=== PATIENT | female | born 1990 | race Caucasian/White ===

== ENCOUNTER 2018-08-12 10:45 | Inpatient (IN) | payer MEDICAID ==
[~2018-08-12] VITALS: Ht 157.5 cm; Wt 73.3 kg
[2018-08-12] MEDS ORDERED: PNV11TAB PO (11:23)
[2018-08-12 11:24] VITALS: BP 108/63; PULSE 87; RESP 19; Ht 157.5 cm; Wt 73.3 kg
[2018-08-12] MEDS ORDERED: LACTATED RINGER'S 1,000 ML IV ONE (11:30)
[2018-08-12] MEDS: LACTATED RINGER'S 1,000 ML IV SCH ×2 (13:21→17:46)
[2018-08-12] MEDS ORDERED: CEFTRIAXONE 1 GM/50 ML (PMX) 50 ML IVPB ONE (14:00)
--- NOTE | 2018-08-12 14:04 | PN ---
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 which has brought on her contractions Patient reports positive movement, denies vaginal bleeding or leaking fluid Patient also reports recently finishing a course of antibiotics for UTI Past OB history significant for x1 at full-term The rest of the pregnancies were terminations /Para 5 para 1 Diabetes: none Hypertention: none Objective Vital Signs Date Temp Pulse Resp B/P (MAP) Pulse Ox O2 O2 Flow FiO2 Time Delivery Rate 08/12/18 99.1 87 19 108/63 Room Air 11:24 (78) Heart Rate: 140's Heart Rate Comments heart rate tracing category 1 Contractions: < 5 Minutes Apart Results/Medications Results 24 hrs Laboratory Tests Test 08/12/18 10:40 08/12/18 11:42 Urine Color YELLOW Urine Clarity SLIGHTLY CLOUDY A Urine pH 7.0 Urine Specific [place] 1.017 Urine Ketones NEGATIVE Urine Nitrite NEGATIVE Urine Bilirubin NEGATIVE Urine Urobilinogen NEGATIVE Urine Leukocyte Esterase 3+ H Urine Microscopic RBC 3 Urine Microscopic WBC 3 Urine Squamous Epithelial Cells FEW Urine Bacteria FEW A Urine Mucus FEW A Urine Hemoglobin NEGATIVE Urine Glucose NEGATIVE Urine Total Protein NEGATIVE Fibronectin NEGATIVE Hematology - 72 Hrs Test 08/12/18 11:44 Hematocrit 32.9 % (37.0-47.0) L Hemoglobin 11.0 g/dl (12.0-16.0) L Mean Corpuscular Hemoglobin 30.5 pg (29.0-33.0) Mean Corpuscular Hemoglobin Concent 33.4 g/dl (32.0-37.0) Mean Corpuscular Volume 91.1 fl (82.0-101.0) Mean Platelet Volume 10.0 fl (7.4-10.4) Platelet Count 225 10^3/UL (140-415) Red Blood Count 3.61 10^6/ul (4.20-5.40) L Red Cell Distribution Width 12.8 % (11.5-14.5) White Blood Count 8.6 10^3/ul (4.8-10.8) Chemistry Test 08/12/18 11:44 Sodium Level 136 mmol/L (135-144) Potassium Level 3.9 mmol/L (3.5-5.1) Chloride Level 106 mmol/L (97-110) Carbon Dioxide Level 25 mmol/L (21-31) Anion Gap 5 (5-13) Blood Urea Nitrogen 8 mg/dl (7-20) Creatinine 0.45 mg/dl (0.44-1.00) Est Glomerular Filtrat Rate mL/min > 60 mL/min (>60) Glucose Level 69 mg/dl (70-220) L Calcium Level 9.3 mg/dl (8.4-10.2) Total Bilirubin 0.5 mg/dl (0.2-1.3) Direct Bilirubin 0.00 mg/dl (0.00-0.20) Indirect Bilirubin 0.5 mg/dl (0-1.1) Aspartate Amino Transf (AST/SGOT) 20 IU/L (15-46) Alanine Aminotransferase (ALT/SGPT) 15 IU/L (13-69) Alkaline Phosphatase 67 IU/L (42-121) Total Protein 6.5 g/dl (6.1-8.1) Albumin 3.3 g/dl (3.3-4.9) Globulin 3.20 g/dl (1.3-3.2) Albumin/Globulin Ratio 1.03 Medications Current Medications Lactated Ringer's 1,000 ml @ 125 mls/hr Q8H IV Last administered on 08/12/18at 13:21; Admin Dose 125 MLS/HR; Start 08/12/18 at 11:30 Imaging Results PROCEDURE: OB ultrasound for biophysical profile CLINICAL INDICATION: labor. TECHNIQUE: Multiple sonographic images of the pelvis were obtained. Transabdominal view of the gravid uterus are available for review. The images were reviewed on a PACS workstation. COMPARISON: OB ultrasound from the same date. FINDINGS: breathing movement = 2/2 tone = 2/2 motion = 2/2 Quantitative amniotic fluid volume = 2/2 JA = 15.4 cm Single live intrauterine with cardiac activity at 144 beats per minute. There is a anterior placenta without previa or abruption. Cervix is closed and measures 3.4 cm in length. IMPRESSION: 1. Single living intrauterine gestation in cephalic position. 2. Biophysical profile = 8/8. 3. JA = 15.4 cm. RPTAT: [facility] Physician Travis Date Time Electronically viewed and signed by Rios Bassett Physician on 08/12/2018 12:36 JH/ CC: LARA NY MD [id number] PROCEDURE: US OB. CLINICAL INDICATION: Size and dates , labor TECHNIQUE: Multiple sonographic images of the pelvis and gravid uterus were obtained. The images were reviewed on a PACS workstation. COMPARISON: No prior studies are available for comparison. FINDINGS: Gestation: Single live intrauterine gestation. Cardiac activity: 163 beats per minute. Presentation: Vertex. Placenta: Location: Anterior. Appearance: No previa or abruption. Measurements: BPD = 9.0 cm, 36 weeks and 3 days HC = 32 cm, 36 weeks and 1 day AC = 29.6 cm, 33 weeks and 4 days FL = 6.2 cm, 32 weeks and 2 days Gestational Age: AUA estimated gestational age: 34 weeks 4 days LMP estimated gestational age: 33 weeks 6 days AUA estimated date of delivery: 09/19/18 The EFW = 2267 g, 39.5%ile based on LMP age. RPTAT: AA IMPRESSION: Single live intrauterine gestation of 34 weeks 4 days by ultrasound criteria. .Ramy Durbin MD, Date Time Electronically viewed and signed by .Ramy Durbin MD, on 08/12/2018 12:21 .S/ CC: LARA [place] MD [id number] Disposition: Discharge Assessment/Plan IV fluid was given Urine analysis consistent with UTI Urine culture was sent IV Rocephin x1 dose was given was given Patient was given prescription for Macrobid 100 mg p.o. twice daily for 1 week Patient instructed to increase p.o. fluid intake kick count instructions were given Labor precautions were given Patient instructed to return if uterine contractions persist or she has any vaginal bleeding or leaking fluid Patient instructed to follow-up with [facility] in 1 to 2 days LARA [place] MD Aug 12, 2018 14:02
[2018-08-12] MEDS: SOD CHLORIDE 0.9% 1,000 ML IV SCH ×2 (14:55→22:30)
--- NOTE | 2018-08-12 16:31 | HP ---
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 OB Admission Exam Vital Signs Vital Signs Vital Signs Date Temp Pulse Resp B/P (MAP) Pulse Ox O2 O2 Flow FiO2 Time Delivery Rate 08/12/18 99.1 87 19 108/63 Room Air 11:24 (78) Physical Exam HEENT: WNL Heart: Rhythm Normal Lungs: Clear, Equal Abdomen: WNL Extremities: Normal Reflexes: Normal Cervical Dilatation: None Membranes: Intact Heart Rate: 140's Accelerations: Accelerations Present Decelerations: No Decelerations Varibility: Moderate Contractions on Admission: < 5 Minutes Apart Intensity: Moderate Last 72 hours Lab Results CBC & BMP 08/12/18 11:44 Liver Function Test 08/12/18 11:44 Alanine Aminotransferase (ALT/SGPT) 15 Albumin 3.3 Alkaline Phosphatase 67 Aspartate Amino Transf (AST/SGOT) 20 Direct Bilirubin 0.00 Total Protein 6.5 Urine Results - 72 Hrs Test 08/12/18 10:40 Urine Color YELLOW (YELLOW) Urine Clarity SLIGHTLY CLOUDY (CLEAR) Urine pH 7.0 (5.0-9.0) Urine Specific [place] 1.017 (1.003-1.030) Urine Ketones NEGATIVE mg/dL (NEGATIVE) Urine Nitrite NEGATIVE mg/dL (NEGATIVE) Urine Bilirubin NEGATIVE mg/dL (NEGATIVE) Urine Urobilinogen NEGATIVE mg/dL (NEGATIVE) Urine Leukocyte Esterase 3+ [place]/ul (NEGATIVE) H Urine Microscopic RBC 3 /HPF (0-5) Urine Microscopic WBC 3 /HPF (0-5) Urine Squamous Epithelial Cells FEW /HPF (FEW) Urine Bacteria FEW /HPF (NONE SEEN) A Urine Mucus FEW /HPF (NONE SEEN) A Urine Hemoglobin NEGATIVE mg/dL (NEGATIVE) Urine Glucose NEGATIVE mg/dL (NEGATIVE) Urine Total Protein NEGATIVE mg/dl (NEGATIVE) PROCEDURE: OB ultrasound for biophysical profile CLINICAL INDICATION: labor. TECHNIQUE: Multiple sonographic images of the pelvis were obtained. Transabdominal view of the gravid uterus are available for review. The images were reviewed on a PACS workstation. COMPARISON: OB ultrasound from the same date. FINDINGS: breathing movement = 2/2 tone = 2/2 motion = 2/2 Quantitative amniotic fluid volume = 2/2 JA = 15.4 cm Single live intrauterine with cardiac activity at 144 beats per minute. There is a anterior placenta without previa or abruption. Cervix is closed and measures 3.4 cm in length. IMPRESSION: 1. Single living intrauterine gestation in cephalic position. 2. Biophysical profile = 10/10. 3. JA = 15.4 cm. RPTAT: [facility] Physician Travis Date Time Electronically viewed and signed by Physician Travis on 08/12/2018 12:36 JH/ CC: LARA [place] MD [id number] PROCEDURE: US OB. CLINICAL INDICATION: Size and dates , labor TECHNIQUE: Multiple sonographic images of the pelvis and gravid uterus were obtained. The images were reviewed on a PACS workstation. COMPARISON: No prior studies are available for comparison. FINDINGS: Gestation: Single live intrauterine gestation. Cardiac activity: 163 beats per minute. Presentation: Vertex. Placenta: Location: Anterior. Appearance: No previa or abruption. Measurements: BPD = 9.0 cm, 36 weeks and 3 days HC = 32 cm, 36 weeks and 1 day AC = 29.6 cm, 33 weeks and 4 days FL = 6.2 cm, 32 weeks and 2 days Gestational Age: AUA estimated gestational age: 34 weeks 4 days LMP estimated gestational age: 33 weeks 6 days AUA estimated date of delivery: 09/19/18 The EFW = 2267 g, 39.5%ile based on LMP age. RPTAT: AA IMPRESSION: Single live intrauterine gestation of 34 weeks 4 days by ultrasound criteria. .Ramy Durbin MD, MD Date Time Electronically viewed and signed by .Ramy Durbin MD, MD on 08/12/2018 12:21 .S/ CC: LARA [place] MD [id number] OB Assessment/Plan Reason for admission: labor (and urinary tract infection) Other plan: 33 weeks and 6 days of gestation with contractions and urinary tract infection Admit to antepartum Continue with IV antibiotics Magnesium sulfate for prevention of labor Betamethasone for lung maturity Neonatology consultation Copies To: CC: BIANKA MARTINEZ MD ; LARA [place] MD Aug 12, 2018 16:31
--- NOTE | 2018-08-12 16:48 | TRIAGE ---
OB Triage Datetime Report Generated by CPN: 08/12/2018 16:48 Datetime: 08/12/2018 16:45 Labor Evaluation Frequency: 2-4 Monitor Mode: External Duration (sec)2399: 50-80 Quality: Mild Pattern: Normal: <= 5 Contractions in 10 Minutes Resting Tone [place]: Relaxed Heart Rate FHR Baseline Rate: 145 Monitor Mode: External US Variability: Moderate 6-25 bpm Accelerations: 15X15 Decelerations: None Category: Category I Datetime: 08/12/2018 13:28 Labor Evaluation Frequency: occas Monitor Mode: External Duration (sec)2399: 50-70 Quality: Mild Pattern: Normal: <= 5 Contractions in 10 Minutes Resting Tone [place]: Relaxed Heart Rate FHR Baseline Rate: 135 Monitor Mode: External US FHR Baseline Changes: No Baseline Change Variability: Moderate 6-25 bpm Accelerations: 15X15 Decelerations: None Category: Category I Datetime: 08/12/2018 12:35 Labor Evaluation Frequency: irregular Monitor Mode: External Duration (sec)2399: 50-80 Quality: Mild Pattern: Normal: <= 5 Contractions in 10 Minutes Resting Tone [place]: Relaxed Heart Rate FHR Baseline Rate: 135 Monitor Mode: External US FHR Baseline Changes: No Baseline Change Variability: Moderate 6-25 bpm Accelerations: 15X15 Decelerations: None Category: Category I Datetime: 08/12/2018 11:45 Vaginal Exam Dilatation (cms): 0.5 Effacement (%): 0 Station: -4 Exam By: CKUNIYOSHI Vaginal Bleeding: None Presentation 'A': Unable to Assess Datetime: 08/12/2018 11:27 Labor Evaluation Frequency: 2 Monitor Mode: External Duration (sec)2399: 50-70 Quality: Mild Pattern: Normal: <= 5 Contractions in 10 Minutes Resting Tone [place]: Relaxed Heart Rate FHR Baseline Rate: 140 Monitor Mode: External US Variability: Moderate 6-25 bpm Accelerations: 15X15 Decelerations: None Category: Category I Datetime: 08/12/2018 11:09 Assessment Type: Triage Maternal Assessment Level of Consciousness: Fully Conscious DTR's/Clonus: DTRs 2+; No Clonus Headache: Denies Blurred Vision: No Respiratory Effort: Unlabored; Regular Rhythm; Equal Expansion Breath Sounds, Left: Clear and Equal Breath Sounds, Right: Clear and Equal Nausea/Vomiting: Denies RUQ Epigastric Pain: Denies Lower Extremities Edema: None Degree: None Upper Extremities Edema: None Degree: None Facial Edema: None Fall Risk Assessment History of Falling: (0) No Secondary Diagnosis: (0) No Ambulatory Aid: (0) Bedrest/Nurse Assist IV Therapy: (0) No Gait: (0) Normal/Bedrest/Immobile Mental Status: (0) Oriented to Own Ability Fall Score: 0 Fall Risk Score Definition: No Risk: No action required Datetime: 08/12/2018 11:08 Time of Arrival: 08/12/2018 10:35 EGA: 33.6 Arrived By: Ambulatory Arrived From: Home Chief Complaint: UC'S Movement: Present Contractions: Irregular Time Contractions Began: 08/11/2018 11:00 Rupture of Membranes: Denies Vaginal Bleeding: None Vaginal Discharge: Denies Recent Sexual Intercouse: Denies Abdominal Trauma: Not Applicable Patient Complaints: Contractions; Cramping Time Provider Notified: 08/12/2018 11:31 Initial Plan: JANELL
[2018-08-12] MEDS ORDERED: MAGNESIUM SULFATE 4 GM/100 ML 100 ML IV ONE (17:30)
[2018-08-12] MEDS: BETAMET NA PHOS/AC(6 MG/ML) 2 ML INJ SYG IM SCH (18:50)
[2018-08-12] MEDS: MAGNESIUM SULFATE 20 GM/500 ML 500 ML IV SCH (18:50)
[2018-08-13] MEDS: MAGNESIUM SULFATE 20 GM/500 ML 500 ML IV SCH ×2 (02:48→13:03)
[2018-08-13] MEDS: LACTATED RINGER'S 1,000 ML IV SCH ×2 (05:18→18:20)
[2018-08-13] MEDS: SOD CHLORIDE 0.9% 1,000 ML IV SCH ×2 (06:30→21:24)
[2018-08-13] MEDS ORDERED: FERROUS SULFATE (EC) 325 MG TAB PO SCH (09:00)
[2018-08-13] MEDS ORDERED: PRENATAL VITAMIN PO SCH (09:00)
[2018-08-13] MEDS ORDERED: CEFTRIAXONE 1 GM/50 ML (PMX) 50 ML IVPB SCH (15:00)
[2018-08-13] MEDS: BETAMET NA PHOS/AC(6 MG/ML) 2 ML INJ SYG IM SCH (18:20)
--- NOTE | 2018-08-13 22:16 | DS ---
Date/Time of Note Date/Time of Note DATE: 08/13/18 TIME: 22:13 Obstetrical Discharge Record Final Diagnosis Final Diagnosis: not delivered Other Final Diagnosis 27 YO SAB2 EAB1 with IUP at 34 weeks who reported to L&D with contractions and closed cervix. she received Magnesium Sulfate and Steroids. Cervix is closed at this time on repeat exam. she denies any contractions or bleeding or LOF per vagina. she reports good FM. NST category one. Complications Tocolytics: Magnesium Sulfate Rupture of Membranes: No Condition on Discharge Physical Assessment Voiding: Yes Bowel Movement: Yes Breast: Soft, non-tender, Filling Abdomen and Incision: soft, gravid. cervix is long and closed Calf Tenderness: No Patient Condition: Good BIANKA MARTINEZ MD Aug 13, 2018 22:16
[2018-08-13] MEDS ORDERED: NITR-58 PO (22:26)
== END 2018-08-13 22:35 | disposition home or self-care (01) | DRG 833 ==
LOC: OBT 10:45 → L-D 10:46 → OBT 16:25 → L-D 16:25
PROVIDERS: ADMIT Specialist; ATTEND Specialist
DX: O60.03 Preterm labor without delivery, third trimester (principal); Z3A.33 33 weeks gestation of pregnancy; Z87.440 Personal history of urinary (tract) infections
CPT/HCPCS: 36415; 76815; 76817; 76818; 80053; 81001; 82731; 83735; 85025; 87086; 96360; 96361; G0463; J0696; J0702; J3475; J7030; J7120

== ENCOUNTER 2018-09-23 06:00 | Inpatient (IN) | payer MEDICAID ==
[~2018-09-23] VITALS: Ht 157.5 cm; Wt 76.8 kg
[~2018-09-23 06:00] MED LIST: NITR-58 PO; PNV11TAB PO
[2018-09-23 06:20] VITALS: RESP 16
[2018-09-23] MEDS ORDERED: FOLI0.4T2 PO (06:20)
[2018-09-23] MEDS ORDERED: FERR134T PO (06:20)
[2018-09-23] MEDS ORDERED: LACTATED RINGER'S 1,000 ML IV PRN (06:56)
[2018-09-23] MEDS ORDERED: METHYLERGONOVINE 0.2 MG INJ IM PRN (07:00)
[2018-09-23] MEDS ORDERED: IBUPROFEN 600 MG TAB PO PRN (07:00)
[2018-09-23] MEDS ORDERED: LIDOCAINE 1% (MPF) 30 ML INJ INJ PRN (07:00)
[2018-09-23] MEDS ORDERED: CARBOPROST 250 MCG INJ IM PRN ×2 (07:00→22:00)
[2018-09-23] MEDS ORDERED: BUTORPHANOL 2 MG INJ IV PRN ×2 (07:00)
[2018-09-23] MEDS ORDERED: OXYTOCIN 30 UNITS/LR 500 ML IV SCH ×2 (07:00→19:30)
[2018-09-23] MEDS ORDERED: OXYTOCIN 30 UNITS/LR 500 ML IV PRN ×2 (07:00→22:00)
[2018-09-23] MEDS ORDERED: MISOPROSTOL 200 MCG TAB PR PRN ×2 (07:00→22:00)
--- NOTE | 2018-09-23 07:08 | TRIAGE ---
OB Triage Datetime Report Generated by CPN: 09/23/2018 07:07 Datetime: 09/23/2018 06:51 Membrane Status: Intact Datetime: 09/23/2018 06:45 Stage of : OB Triage Datetime: 09/23/2018 06:44 Labor Evaluation Frequency: 2-5 Monitor Mode: External Quality: Moderate Pattern: Normal: <= 5 Contractions in 10 Minutes Resting Tone Barton: Relaxed Heart Rate FHR Baseline Rate: 130 Monitor Mode: External US FHR Baseline Changes: No Baseline Change Variability: Moderate 6-25 bpm Accelerations: 15X15 Decelerations: None Category: Category I Vaginal Exam Dilatation (cms): 3.0 Effacement (%): 70 Station: -2 Exam By: Boaz Stevens Membrane Status: Intact Vaginal Bleeding: Scant Cervix, Consistency: Soft Cervix, Position: Posterior Presentation 'A': Cephalic Datetime: 09/23/2018 06:35 Time of Arrival: 09/23/2018 06:00 EGA: 39.6 Arrived By: Ambulatory Arrived From: Home Chief Complaint: c/o ucs and discharge Movement: Present Contractions: Regular Contractions: q7 Rupture of Membranes: Denies Vaginal Bleeding: Scant Vaginal Discharge: Present Recent Sexual Intercouse: Denies Abdominal Trauma: Not Applicable Patient Complaints: Contractions Time Provider Notified: 09/23/2018 06:45 Provider Notified: Dr Reilly Initial Plan: EFM,SVE Datetime: 09/23/2018 06:24 Stage of : OB Triage Maternal Assessment Level of Consciousness: Keenly Alert, Responsive Headache: Denies Blurred Vision: No Respiratory Effort: Unlabored Nausea/Vomiting: Denies RUQ Epigastric Pain: Denies Facial Edema: None Monitor Mode: External Resting Tone Barton: Relaxed Heart Rate FHR Baseline Rate: 135 Monitor Mode: External US Pain Assessment Pain Scale: 5 Pain Presence: Intermittent Pain Type: Contraction Pain Location: Abdomen Datetime: 08/13/2018 22:35 Stage of : Antepartum Datetime: 08/13/2018 22:02 Stage of : Antepartum Labor Evaluation Frequency: 0 Monitor Mode: External Pattern: Normal: <= 5 Contractions in 10 Minutes Resting Tone Barton: Relaxed Heart Rate FHR Baseline Rate: 130 Monitor Mode: External US Variability: Moderate 6-25 bpm Accelerations: 15X15 Decelerations: None Category: Category I Vaginal Exam Dilatation (cms): 0.0 Effacement (%): 0 Station: -3 Exam By: Jhonatan RN Datetime: 08/13/2018 21:18 Monitor Mode: External Monitor Mode: External US Datetime: 08/13/2018 21:00 Stage of : Antepartum Labor Evaluation Frequency: 0 Monitor Mode: External Pattern: Normal: <= 5 Contractions in 10 Minutes Resting Tone Barton: Relaxed Heart Rate FHR Baseline Rate: 130 Monitor Mode: External US Variability: Moderate 6-25 bpm Accelerations: 15X15 Decelerations: None Category: Category I Datetime: 08/13/2018 19:50 Stage of : Antepartum Temperature Route: Oral Labor Evaluation Frequency: 0 Monitor Mode: External Pattern: Normal: <= 5 Contractions in 10 Minutes Resting Tone Barton: Relaxed Heart Rate FHR Baseline Rate: 135 Monitor Mode: External US Variability: Moderate 6-25 bpm Accelerations: 15X15 Decelerations: None Category: Category I Datetime: 08/13/2018 18:30 Labor Evaluation Frequency: NONE Monitor Mode: External Pattern: Normal: <= 5 Contractions in 10 Minutes Resting Tone Barton: Relaxed Heart Rate FHR Baseline Rate: 145 Monitor Mode: External US FHR Baseline Changes: No Baseline Change Variability: Moderate 6-25 bpm Accelerations: 15X15 Decelerations: None Category: Category I Datetime: 08/13/2018 17:30 Labor Evaluation Frequency: NONE Monitor Mode: External Pattern: Normal: <= 5 Contractions in 10 Minutes Resting Tone Barton: Relaxed Heart Rate FHR Baseline Rate: 135 Monitor Mode: External US FHR Baseline Changes: No Baseline Change Variability: Moderate 6-25 bpm Accelerations: 10X10 Decelerations: None Category: Category I Datetime: 08/13/2018 17:00 Labor Evaluation Frequency: X1 Monitor Mode: External Duration (sec)2399: 40 Pattern: Normal: <= 5 Contractions in 10 Minutes Resting Tone Barton: Relaxed Heart Rate FHR Baseline Rate: 135 Monitor Mode: External US FHR Baseline Changes: No Baseline Change Variability: Moderate 6-25 bpm Accelerations: 10X10 Decelerations: None Category: Category I Datetime: 08/13/2018 16:30 Labor Evaluation Frequency: NONE Monitor Mode: External Pattern: Normal: <= 5 Contractions in 10 Minutes Resting Tone Barton: Relaxed Heart Rate FHR Baseline Rate: 135 Monitor Mode: External US FHR Baseline Changes: No Baseline Change Variability: Moderate 6-25 bpm Accelerations: 10X10 Decelerations: None Category: Category I Datetime: 08/13/2018 16:00 Labor Evaluation Frequency: NONE Monitor Mode: External Pattern: Normal: <= 5 Contractions in 10 Minutes Resting Tone Barton: Relaxed Heart Rate FHR Baseline Rate: 130 Monitor Mode: External US FHR Baseline Changes: No Baseline Change Variability: Moderate 6-25 bpm Accelerations: 10X10 Decelerations: None Category: Category I Datetime: 08/13/2018 15:30 Labor Evaluation Frequency: NONE Monitor Mode: External Pattern: Normal: <= 5 Contractions in 10 Minutes Resting Tone Barton: Relaxed Heart Rate FHR Baseline Rate: 135 Monitor Mode: External US FHR Baseline Changes: No Baseline Change Variability: Moderate 6-25 bpm Accelerations: 15X15 Decelerations: None Category: Category I Datetime: 08/13/2018 15:00 Labor Evaluation Frequency: NONE Monitor Mode: External Pattern: Normal: <= 5 Contractions in 10 Minutes Resting Tone Barton: Relaxed Heart Rate FHR Baseline Rate: 140 Monitor Mode: External US FHR Baseline Changes: No Baseline Change Variability: Moderate 6-25 bpm Accelerations: 15X15 Decelerations: None Category: Category I Datetime: 08/13/2018 14:30 Labor Evaluation Frequency: NONE Monitor Mode: External Pattern: Normal: <= 5 Contractions in 10 Minutes Resting Tone Barton: Relaxed Heart Rate FHR Baseline Rate: 135 Monitor Mode: External US FHR Baseline Changes: No Baseline Change Variability: Moderate 6-25 bpm Accelerations: 15X15 Decelerations: None Category: Category I Datetime: 08/13/2018 14:00 Labor Evaluation Frequency: NONE Monitor Mode: External Pattern: Normal: <= 5 Contractions in 10 Minutes Resting Tone Barton: Relaxed Heart Rate FHR Baseline Rate: 135 Monitor Mode: External US FHR Baseline Changes: No Baseline Change Variability: Moderate 6-25 bpm Accelerations: 15X15 Decelerations: None Category: Category I Datetime: 08/13/2018 13:00 Labor Evaluation Frequency: NONE Monitor Mode: External Pattern: Normal: <= 5 Contractions in 10 Minutes Resting Tone Barton: Relaxed Heart Rate FHR Baseline Rate: 135 Monitor Mode: External US FHR Baseline Changes: No Baseline Change Variability: Moderate 6-25 bpm Accelerations: 15X15 Decelerations: None Category: Category I Datetime: 08/13/2018 12:30 Labor Evaluation Frequency: NONE Monitor Mode: External Pattern: Normal: <= 5 Contractions in 10 Minutes Resting Tone Barton: Relaxed Heart Rate FHR Baseline Rate: 135 Monitor Mode: External US FHR Baseline Changes: No Baseline Change Variability: Moderate 6-25 bpm Accelerations: 15X15 Decelerations: None Category: Category I Datetime: 08/13/2018 12:00 Labor Evaluation Frequency: NONE Monitor Mode: External Pattern: Normal: <= 5 Contractions in 10 Minutes Resting Tone Barton: Relaxed Heart Rate FHR Baseline Rate: 130 Monitor Mode: External US FHR Baseline Changes: No Baseline Change Variability: Moderate 6-25 bpm Accelerations: 15X15 Decelerations: None Category: Category I Datetime: 08/13/2018 11:30 Labor Evaluation Frequency: NONE Monitor Mode: External Pattern: Normal: <= 5 Contractions in 10 Minutes Resting Tone Barton: Relaxed Heart Rate FHR Baseline Rate: 135 Monitor Mode: External US FHR Baseline Changes: No Baseline Change Variability: Moderate 6-25 bpm Accelerations: 15X15 Decelerations: None Category: Category I Datetime: 08/13/2018 11:00 Labor Evaluation Frequency: 0 Monitor Mode: External Resting Tone Barton: Relaxed Heart Rate FHR Baseline Rate: 135 Monitor Mode: External US FHR Baseline Changes: No Baseline Change Variability: Moderate 6-25 bpm Accelerations: 15X15 Decelerations: None Category: Category I Datetime: 08/13/2018 10:00 Labor Evaluation Frequency: 0 Monitor Mode: External Resting Tone Barton: Relaxed Heart Rate FHR Baseline Rate: 140 Monitor Mode: External US FHR Baseline Changes: No Baseline Change Variability: Moderate 6-25 bpm Accelerations: 15X15 Decelerations: None Category: Category I Datetime: 08/13/2018 09:00 Labor Evaluation Frequency: NONE Monitor Mode: External Pattern: Normal: <= 5 Contractions in 10 Minutes Resting Tone Barton: Relaxed Heart Rate FHR Baseline Rate: 130 Monitor Mode: External US FHR Baseline Changes: No Baseline Change Variability: Moderate 6-25 bpm Accelerations: 15X15 Decelerations: None Category: Category I Datetime: 08/13/2018 08:10 Assessment Type: Ongoing Assessment Maternal Assessment Level of Consciousness: Fully Conscious DTR's/Clonus: DTRs 2+; No Clonus Headache: Denies Blurred Vision: No Respiratory Effort: Unlabored; Regular Rhythm; Equal Expansion Breath Sounds, Left: Clear and Equal Breath Sounds, Right: Clear and Equal Nausea/Vomiting: Denies RUQ Epigastric Pain: Denies Lower Extremities Edema: None Upper Extremities Edema: None Facial Edema: None Fall Risk Assessment History of Falling: (0) No Secondary Diagnosis: (0) No Ambulatory Aid: (0) Bedrest/Nurse Assist IV Therapy: (20) Yes Gait: (0) Normal/Bedrest/Immobile Mental Status: (0) Oriented to Own Ability Fall Score: 20 Fall Risk Score Definition: No Risk: No action required Datetime: 08/13/2018 08:08 Temperature Route: Oral Datetime: 08/13/2018 08:00 Labor Evaluation Frequency: NONE Monitor Mode: External Pattern: Normal: <= 5 Contractions in 10 Minutes Resting Tone Barton: Relaxed Heart Rate FHR Baseline Rate: 130 FHR Baseline Changes: No Baseline Change Variability: Moderate 6-25 bpm Accelerations: 15X15 Decelerations: Variable Category: Category II Datetime: 08/13/2018 07:00 Labor Evaluation Frequency: x2 Monitor Mode: External Duration (sec)2399: 50-70 Pattern: Normal: <= 5 Contractions in 10 Minutes Heart Rate FHR Baseline Rate: 125 Monitor Mode: External US Variability: Moderate 6-25 bpm Accelerations: 15X15 Decelerations: None Category: Category I Datetime: 08/13/2018 06:54 Resting Tone Barton: Relaxed Contraction Comments: Abdomen soft. No contractions noted Pain Assessment Pain Scale: 0 Pain Presence: None/Denies Pain Type: N/A Datetime: 08/13/2018 06:00 Labor Evaluation Frequency: none Monitor Mode: External Pattern: Normal: <= 5 Contractions in 10 Minutes Heart Rate FHR Baseline Rate: 125 Monitor Mode: External US Variability: Moderate 6-25 bpm Accelerations: Prolonged Decelerations: None Category: Category I Comments: Some loss of contact Datetime: 08/13/2018 05:16 Stage of : Antepartum Maternal Assessment Level of Consciousness: Fully Conscious DTR's/Clonus: DTRs 2+; No Clonus Headache: Denies Blurred Vision: No Respiratory Effort: Unlabored; Regular Rhythm; Equal Expansion Breath Sounds, Left: Clear and Equal Breath Sounds, Right: Clear and Equal Nausea/Vomiting: Denies RUQ Epigastric Pain: Denies Temperature Route: Oral Resting Tone Barton: Relaxed Contraction Comments: Abdomen soft, no contractions palpated Comments: Active movement noted Pain Assessment Pain Scale: 0 Pain Presence: None/Denies Pain Type: N/A Datetime: 08/13/2018 05:00 Labor Evaluation Frequency: none Monitor Mode: External Pattern: Normal: <= 5 Contractions in 10 Minutes Heart Rate FHR Baseline Rate: 130 Monitor Mode: External US Variability: Moderate 6-25 bpm Accelerations: Prolonged Decelerations: None Category: Category I Comments: Some loss of contact Datetime: 08/13/2018 04:00 Labor Evaluation Frequency: none Monitor Mode: External Pattern: Normal: <= 5 Contractions in 10 Minutes Heart Rate FHR Baseline Rate: 130 Monitor Mode: External US Variability: Moderate 6-25 bpm Accelerations: 15X15 Decelerations: None Category: Category I Comments: Some loss of contact Datetime: 08/13/2018 03:00 Labor Evaluation Frequency: x2 Monitor Mode: External Duration (sec)2399: 70-110 Pattern: Normal: <= 5 Contractions in 10 Minutes Heart Rate FHR Baseline Rate: 135 Monitor Mode: External US Variability: Moderate 6-25 bpm Accelerations: 15X15 Comments: Frequent loss of contact d/t maternal movement and position changes Datetime: 08/13/2018 02:42 Stage of : Antepartum Maternal Assessment Level of Consciousness: Fully Conscious DTR's/Clonus: DTRs 2+; No Clonus Headache: Denies Blurred Vision: No Respiratory Effort: Unlabored; Regular Rhythm; Equal Expansion Breath Sounds, Left: Clear and Equal Breath Sounds, Right: Clear and Equal Nausea/Vomiting: Denies RUQ Epigastric Pain: Denies Temperature Route: Oral Resting Tone Barton: Relaxed Contraction Comments: Abdomen soft. No contractions palpated. Pain Assessment Pain Scale: 0 Pain Presence: None/Denies Pain Type: N/A Datetime: 08/13/2018 02:00 Labor Evaluation Frequency: none Monitor Mode: External Pattern: Normal: <= 5 Contractions in 10 Minutes Heart Rate FHR Baseline Rate: 130 Monitor Mode: External US Variability: Moderate 6-25 bpm Accelerations: 15X15 Decelerations: None Datetime: 08/13/2018 01:06 DTR's/Clonus: DTRs 2+; No Clonus Resting Tone Barton: Relaxed Contraction Comments: Abdomen soft. No contractions palpated. Pain Assessment Pain Scale: 0 Pain Presence: None/Denies Pain Type: N/A Datetime: 08/13/2018 01:00 Labor Evaluation Frequency: x1 Monitor Mode: External Duration (sec)2399: 50 Pattern: Normal: <= 5 Contractions in 10 Minutes Heart Rate FHR Baseline Rate: 120 Monitor Mode: External US Variability: Moderate 6-25 bpm Accelerations: 15X15 Comments: Frequent loss of contact Datetime: 08/13/2018 00:00 Labor Evaluation Frequency: occasional Monitor Mode: External Duration (sec)2399: 40-50 Pattern: Normal: <= 5 Contractions in 10 Minutes Heart Rate FHR Baseline Rate: 130 Monitor Mode: External US Variability: Moderate 6-25 bpm Accelerations: 15X15 Decelerations: Variable Comments: Frequent loss of contact d/t maternal movement and position changes Datetime: 08/12/2018 23:52 Stage of : Antepartum Maternal Assessment Level of Consciousness: Fully Conscious DTR's/Clonus: DTRs 2+; No Clonus Headache: Denies Blurred Vision: No Nausea/Vomiting: Denies Temperature Route: Oral Resting Tone Barton: Relaxed Contraction Comments: Abdomen soft and no contractions palpated Pain Assessment Pain Scale: 0 Pain Presence: None/Denies Pain Type: N/A Datetime: 08/12/2018 23:24 Resting Tone Barton: Relaxed Contraction Comments: Abdomen soft. No contractions palpated at this time Pain Assessment Pain Scale: 0 Pain Presence: None/Denies Pain Type: N/A Datetime: 08/12/2018 23:00 Labor Evaluation Frequency: occasional Monitor Mode: External Duration (sec)2399: 40-50 Pattern: Normal: <= 5 Contractions in 10 Minutes Heart Rate FHR Baseline Rate: 130 Monitor Mode: External US Variability: Moderate 6-25 bpm Accelerations: 15X15 Decelerations: None Comments: Frequent loss of contact Datetime: 08/12/2018 22:15 DTR's/Clonus: DTRs 2+; No Clonus Resting Tone Barton: Relaxed Contraction Comments: Abdomen soft. No contractions palpated Pain Assessment Pain Scale: 0 Pain Presence: None/Denies Pain Type: N/A Datetime: 08/12/2018 22:07 Resting Tone Barton: Relaxed Contraction Comments: Abdomen soft. No contractions palpated Pain Assessment Pain Scale: 0 Pain Presence: None/Denies Pain Type: N/A Datetime: 08/12/2018 22:00 Labor Evaluation Frequency: none Monitor Mode: External Pattern: Normal: <= 5 Contractions in 10 Minutes Heart Rate FHR Baseline Rate: 130 Monitor Mode: External US Variability: Moderate 6-25 bpm Accelerations: 15X15 Comments: Frequent loss of contact Datetime: 08/12/2018 21:09 Resting Tone Barton: Relaxed Contraction Comments: Abdomen soft. No contractions palpated Comments: Patient states she feels active movement Pain Assessment Pain Scale: 0 Pain Presence: None/Denies Pain Type: N/A Datetime: 08/12/2018 21:00 Labor Evaluation Frequency: occasional Monitor Mode: External Duration (sec)2399: 40-60 Pattern: Normal: <= 5 Contractions in 10 Minutes Heart Rate FHR Baseline Rate: 130 Monitor Mode: External US Variability: Moderate 6-25 bpm Accelerations: 15X15 Decelerations: None Category: Category I Comments: Some loss of contact Datetime: 08/12/2018 20:08 Stage of : Antepartum Assessment Type: Ongoing Assessment Maternal Assessment Level of Consciousness: Fully Conscious DTR's/Clonus: DTRs 2+; No Clonus Headache: Denies Blurred Vision: No Respiratory Effort: Unlabored; Regular Rhythm; Equal Expansion Breath Sounds, Left: Clear and Equal Breath Sounds, Right: Clear and Equal Nausea/Vomiting: Denies RUQ Epigastric Pain: Denies Lower Extremities Edema: None Degree: None Upper Extremities Edema: None Degree: None Facial Edema: None Temperature Route: Oral Fall Risk Assessment History of Falling: (0) No Secondary Diagnosis: (0) No Ambulatory Aid: (0) Bedrest/Nurse Assist IV Therapy: (20) Yes Gait: (0) Normal/Bedrest/Immobile Mental Status: (0) Oriented to Own Ability Fall Score: 20 Fall Risk Score Definition: No Risk: No action required Comments: Patient states she feels active movement Pain Assessment Pain Scale: 1 Pain Presence: Intermittent Pain Type: tightening Pain Location: Abdomen Pain Relief Measures: Comfort Measures Datetime: 08/12/2018 20:00 Labor Evaluation Frequency: irregular Monitor Mode: External Duration (sec)2399: 60-80 Pattern: Normal: <= 5 Contractions in 10 Minutes Heart Rate FHR Baseline Rate: 135 Monitor Mode: External US Variability: Moderate 6-25 bpm Accelerations: Prolonged Comments: Frequent loss of contact d/t active movement Datetime: 08/12/2018 19:00 Labor Evaluation Frequency: 4-5 Monitor Mode: External Duration (sec)2399: 50-60 Quality: Mild Pattern: Normal: <= 5 Contractions in 10 Minutes Resting Tone Barton: Relaxed Heart Rate FHR Baseline Rate: 145 Monitor Mode: External US FHR Baseline Changes: No Baseline Change Variability: Moderate 6-25 bpm Accelerations: 15X15 Decelerations: Variable Datetime: 08/12/2018 18:15 Temperature Route: Oral Datetime: 08/12/2018 18:00 Stage of : Antepartum Labor Evaluation Frequency: 2-4 Monitor Mode: External Duration (sec)2399: 40-60 Quality: Mild Pattern: Normal: <= 5 Contractions in 10 Minutes Resting Tone Barton: Relaxed Heart Rate FHR Baseline Rate: 145 Monitor Mode: External US FHR Baseline Changes: No Baseline Change Variability: Moderate 6-25 bpm Accelerations: 15X15 Decelerations: None Pain Assessment Pain Scale: 5 Pain Presence: Intermittent Pain Type: Cramping Pain Location: Abdomen Pain Relief Measures: Comfort Measures Datetime: 08/12/2018 17:35 Assessment Type: Admission Assessment Vaginal Bleeding: None Maternal Assessment Level of Consciousness: Fully Conscious DTR's/Clonus: DTRs 2+; No Clonus Headache: Denies Blurred Vision: No Respiratory Effort: Unlabored; Regular Rhythm; Equal Expansion Breath Sounds, Left: Clear and Equal Breath Sounds, Right: Clear and Equal Nausea/Vomiting: Denies RUQ Epigastric Pain: Denies Facial Edema: None Fall Risk Assessment History of Falling: (0) No Secondary Diagnosis: (0) No Ambulatory Aid: (0) Bedrest/Nurse Assist IV Therapy: (0) No Gait: (0) Normal/Bedrest/Immobile Mental Status: (0) Oriented to Own Ability Fall Score: 0 Fall Risk Score Definition: No Risk: No action required Pain Assessment Pain Scale: 0 Pain Presence: None/Denies Pain Type: N/A Pain Goal: 3 Datetime: 08/12/2018 17:00 Heart Rate FHR Baseline Rate: 145 Monitor Mode: External US FHR Baseline Changes: No Baseline Change Variability: Moderate 6-25 bpm Accelerations: 15X15 Decelerations: None Datetime: 08/12/2018 15:26 Labor Evaluation Frequency: irregular Monitor Mode: External Duration (sec)2399: 40-80 Quality: Mild Pattern: Normal: <= 5 Contractions in 10 Minutes Resting Tone Barton: Relaxed Heart Rate FHR Baseline Rate: 140 Monitor Mode: External US Variability: Moderate 6-25 bpm Accelerations: 15X15 Decelerations: None Category: Category I Datetime: 08/12/2018 14:30 Labor Evaluation Frequency: irregular Monitor Mode: External Duration (sec)2399: 50-80 Quality: Mild Pattern: Normal: <= 5 Contractions in 10 Minutes Resting Tone Barton: Relaxed Heart Rate FHR Baseline Rate: 135 Monitor Mode: External US FHR Baseline Changes: No Baseline Change Variability: Moderate 6-25 bpm Accelerations: 15X15 Decelerations: None Category: Category I Datetime: 08/12/2018 11:09 Fall Score: 0 Fall Risk Score Definition: No Risk: No action required Datetime: 08/12/2018 11:08 EGA: 33.6 Provider Notified: dr garza
[2018-09-23] MEDS: LACTATED RINGER'S 1,000 ML IV SCH ×2 (08:03→18:21)
--- NOTE | 2018-09-23 09:20 | PREAC ---
Date/Time of Note Date/Time of Note DATE: 09/23/18 TIME: Anesthesia Eval and Record Evaluation Time Pre-Procedure Interview DATE: 09/23/18 TIME: Age 28 Sex female NPO: 8 hrs Preoperative diagnosis intrauterine Planned procedure labor epidural Past Medical History Past Medical History: Includes : Gestational age: (39+) Surgery & Anesthesia Issues No known issue Meds Anticoagulation: No Beta Prisca within 24 hr: No Reason Beta Prisca not given: Pt. not on B-Prisca Reported Medications Folic Acid* (Folic Acid*) 0.4 Mg Tablet, 0.4 MG PO DAILY, TAB 09/23/18 Ferrous Sulfate (Iron) 134 Mg Tablet, 134 MG PO DAILY, TAB 09/23/18 [id number] ( ) 1 Each Tablet, 1 TAB PO DAILY, TAB 08/12/18 Discontinued Reported Medications Nitrofurantoin Monohyd Macrocr* (Macrobid*) 100 Mg Capsr, 100 MG PO BID, CAP 08/13/18 Current Medications Lactated Ringer's 1,000 ml @ 125 mls/hr Q8H IV Last administered on 09/23/18at 08:03; Admin Dose 125 MLS/HR; Start 09/23/18 at 06:56 Butorphanol Tartrate (Stadol) 1 mg Q2H PRN IV .PAIN SCALE 1-5; Start 09/23/18 at 07:00 Butorphanol Tartrate (Stadol) 2 mg Q2H PRN IV .PAIN SCALE 6-10; Start 09/23/18 at 07:00 Lidocaine (Xylocaine 1% (Mpf)) 30 ml ONCE PRN INJ .EPISIOTOMY; Start 09/23/18 at 07:00 Oxytocin/Lactated Ringer's 500 ml @ 500 mls/hr ONCE POST IV ; Start 09/23/18 at 07:00 Oxytocin/Lactated Ringer's 500 ml @ 125 mls/hr POST IV ; Start 09/23/18 at 07:00 Ibuprofen (Motrin) 600 mg ONCE PRN PO .PAIN 1-5; Start 09/23/18 at 07:00 Lactated Ringer's 1,000 ml @ 2,000 mls/hr Q30M PRN IV .ANESTHESIA Last administered on 09/23/18at 09:10; Admin Dose 2,000 MLS/HR; Start 09/23/18 at 06:56 Oxytocin/Lactated Ringer's 500 ml @ 0 mls/hr ONCE PRN IV .VAGINAL BLEEDING; Start 09/23/18 at 07:00 Methylergonovine Maleate (Methergine) 0.2 mg ONCE PRN IM .VAGINAL BLEEDING; Start 09/23/18 at 07:00 Carboprost Tromethamine (Hemabate) 250 mcg ONCE PRN IM .VAGINAL BLEEDING; Start 09/23/18 at 07:00 Misoprostol (Cytotec) 1,000 mcg ONCE PRN MS .VAGINAL BLEEDING; Start 09/23/18 at 07:00 Meds reviewed: Yes Allergies Coded Allergies: No Known Drug Allergy (Verified Allergy, Unknown, 09/23/18) Allergies Reviewed: Yes Labs/Studies Labs Reviewed: Reviewed by anesthesiologist Result Diagram: 09/23/18 0810 Laboratory Tests 09/23/18 08:10 Blood Bank Test 09/23/18 08:10 Antibody Screen NEGATIVE Blood Type A POSITIVE Rh Immune Globulin Candidate NO test: N/A Pre-procedure Exam Last vitals Vital Signs Date Temp Pulse Resp B/P (MAP) Pulse Ox O2 O2 Flow FiO2 Time Delivery Rate 09/23/18 98.2 16 Room Air 06:20 Airway: Adequate mouth opening, Adequate thyromental dist Mallampati: Mallampati II Teeth: Normal Lung: Normal Heart: Normal ASA Physical Status ASA physical status: 2 Emergency: None Planned Anesthetic Neuraxial: Epidural Planned Pain Management Epidural, Parenteral pain med Pre-operative Attestations Prior to commencing anesthesia and surgery, the patient was re-evaluated, there was verification of: *The patient's identity *The results of appropriate recent lab work and preoperative vital signs *The above evaluation not changing prior to induction *Anesthetic plan, risk benefits, alternative and complications discussed with patient/family; questions answered; patient/family understands, accepts and wishes to proceed. JOSIAS HALE MD Sep 23, 2018 09:20
--- NOTE | 2018-09-23 09:20 | HP ---
Date/Time of Note Date/Time of Note DATE: 09/23/18 TIME: 09:19 OB - History Hx of Present Free Text/Dictation 28 YO EAB 2 SAB 2 with IUP at 39.6 weeks with EDC 09/24/2018 who presents in L&D in early labor. she denies LOF per vagina or vaginal bleeding. she reports good FM. Care: Good Care Ultrasounds: Normal mid trimester US Obstetrical Complications: None Medical Complications: None Past Family/Social History * Past Medical, Surgical, Family and Obstetric Histories reviewed from chart. OB Admission Exam Vital Signs Vital Signs Vital Signs Date Temp Pulse Resp B/P (MAP) Pulse Ox O2 O2 Flow FiO2 Time Delivery Rate 09/23/18 98.2 16 Room Air 06:20 Physical Exam HEENT: WNL Heart: Rhythm Normal Lungs: Clear, Equal Abdomen: WNL Extremities: Normal Reflexes: Normal Cervical Dilatation: 3cm Accelerations: Accelerations Present Decelerations: No Decelerations Varibility: Moderate Last 72 hours Lab Results CBC & BMP 09/23/18 08:10 OB Assessment/Plan Other Assessment: Early Labor Plan: Expectant Management BIANKA MARTINEZ MD Sep 23, 2018 09:20
[2018-09-23] MEDS ORDERED: FENTAnyl 2MCG/ML-ROPIV 0.2% 100 ML ONE (09:22)
[2018-09-23] MEDS ORDERED: FENTAnyl 2MCG/ML-ROPIV 0.2% 100 ML BAG EPI SCH (09:30)
[2018-09-23] MEDS ORDERED: NALOXONE (0.4 MG/ML) INJ IV PRN (09:30)
[2018-09-23] MEDS ORDERED: ONDANSETRON 4 MG INJ IV PRN ×2 (09:30→22:00)
[2018-09-23] MEDS ORDERED: DIPHENHYDRAMINE 50 MG INJ IV PRN ×2 (09:30→22:00)
--- NOTE | 2018-09-23 11:20 | PAC ---
Date/Time of Note Date/Time of Note DATE: 09/23/18 TIME: 11:20 Post-Anesthesia Notes Post-Anesthesia Note Last documented vital signs Vital Signs Date Temp Pulse Resp B/P (MAP) Pulse Ox O2 O2 Flow FiO2 Time Delivery Rate 09/23/18 98.2 16 Room Air 06:20 Activity: WNL Respiratory function: WNL Cardiovascular function: WNL Mental status: Baseline Pain reasonably controlled: Yes Hydration appropriate: Yes Nausea/Vomiting absent: Yes Comments BP: 110/64 HR: 70 RR: 15 T: 98.2 SaO2: 100% JOSIAS HALE MD Sep 23, 2018 11:20
[2018-09-23] MEDS ORDERED: MAGNESIUM HYDROXIDE 30ML CUP PO PRN (22:00)
[2018-09-23] MEDS ORDERED: SENNA/DOCUSATE NA (8.6MG/50MG) TAB PO PRN (22:00)
[2018-09-23] MEDS ORDERED: DIPHENHYDRAMINE 25 MG CAP PO PRN (22:00)
[2018-09-23] MEDS ORDERED: HYDROCODONE/APAP (5/325) TAB PO PRN ×2 (22:00)
[2018-09-23] MEDS ORDERED: NA PHOSPHATE/BIPHOS 133 ML ENEMA PR PRN (22:00)
[2018-09-23] MEDS ORDERED: DIBUCAINE 1% 30 GM OINT TOP PRN (22:00)
[2018-09-23] MEDS ORDERED: BENZOCAINE 20% 56 ML SPRAY TOP PRN (22:00)
[2018-09-23] MEDS ORDERED: LANOLIN HPA 1 PKT TOP PRN (22:00)
[2018-09-23] MEDS ORDERED: WITCH HAZEL/GLYCERIN PAD PR PRN (22:00)
[2018-09-23] MEDS ORDERED: ONDANSETRON 4 MG TAB PO PRN (22:00)
--- NOTE | 2018-09-23 22:00 | LDN ---
Date/Time of Note Date/Time of Note DATE: 09/23/18 TIME: 21:57 Delivery Summary 28 YO EAB 2 SAB 2 with IUP at 39.6 weeks with EDC 09/24/2018 s/p of viable female infant. After delivery of the head, I noticed tight nuchal cord x1. The cord had to be double clamped and cut at the perineum. The rest of the body delivered easily. I did not apply excessive traction. Placenta delivered spontaneously and intact. evaluation of the placenta confirmed intact placenta. Uterus was firm with cervix closed on exam. Second-degree vaginal perineal laceration was repaired in normal fashion with 3-0 Vicryl suture. A piece of umbilical cord was also double clamped prior to delivery of the placenta and lashawn ed for cord gases. Results of cord gases are not available at this time. Placenta Delivered: Spontaneously Episiotomy: No Anesthesia type: Epidural Estimated blood loss: 300 Sponge & Needle done & correct: Yes All needle counts correct: Yes Any foreign bodies felt in the: No Infant Delivery Information Sex Sex: female Apgars 1 Minute: 6 5 Minute: 9 Suctioning Nose & mouth suctioned at edis: No Delee suction performed: No Umbilical Cord Umbilical cord with: 3 Vessels Cord presentations: nuchal cord Nuchal cord present X: 1 Cord Blood was obtained: Yes Mother & Baby Disposition Disposition Mom & Baby to Maternity; Good: Yes BIANKA MARTINEZ MD Sep 23, 2018 22:00
[2018-09-23] MEDS: OXYTOCIN 30 UNITS/LR 500 ML IV SCH (22:08)
[2018-09-24] VITALS: BP 107/59; PULSE 71; RESP 18
[2018-09-24] MEDS: IBUPROFEN 600 MG TAB PO SCH ×4 (00:17→18:10)
[2018-09-24] MEDS: OXYTOCIN 30 UNITS/LR 500 ML IV SCH (02:32)
[2018-09-24 04:40] VITALS: BP 98/55; PULSE 76; RESP 18
[2018-09-24] MEDS: LACTATED RINGER'S 1,000 ML IV* SCH ×4 (06:00→22:00)
[2018-09-24 08:00] VITALS: BP 99/64; PULSE 69; RESP 16
[2018-09-24] MEDS: SENNA/DOCUSATE NA (8.6MG/50MG) TAB PO SCH (08:16)
[2018-09-24 12:00] VITALS: BP 96/53; PULSE 80; RESP 16
[2018-09-24 16:36] VITALS: BP 113/59; PULSE 83; RESP 17
[2018-09-24 19:45] VITALS: BP 92/57; PULSE 76; RESP 20
--- NOTE | 2018-09-24 20:19 | DS ---
Date/Time of Note Date/Time of Note DATE: 09/24/18 TIME: 20:19 Obstetrical Discharge Record Final Diagnosis Final Diagnosis: Term delivered Vaginal Delivery Obstetrical Delivery: Spontaneous Complications Augmentation: Yes Induction: Yes Rupture of Membranes: No Condition on Discharge Physical Assessment Voiding: Yes Bowel Movement: Yes Breast: Soft, non-tender, Filling Fundus: Firm Abdomen and Incision: Soft, not tender Episiotomy: Not applicable Calf Tenderness: No Patient Condition: Good BIANKA MARTINEZ MD Sep 24, 2018 20:19
[2018-09-25] MEDS: IBUPROFEN 600 MG TAB PO SCH ×3 (00:10→12:22)
[2018-09-25] MEDS: SENNA/DOCUSATE NA (8.6MG/50MG) TAB PO SCH ×2 (00:10→08:02)
[2018-09-25 04:30] VITALS: BP 96/54; PULSE 58; RESP 18
[2018-09-25 08:00] VITALS: BP 95/57; PULSE 73; RESP 16
[2018-09-25] MEDS ORDERED: VARICELLA VACCINE LIVE/PF 1,350 UNIT/0.5 ML ML SC* ONE (09:00)
[2018-09-25] MEDS ORDERED: MEASLES,MUMPS,RUBELLA VACCINE INJ SC* ONE (09:00)
[2018-09-25] MEDS ORDERED: DIPHTH/TET/ACEL PERTUSS (ADULT) 0.5 ML VIAL IM* ONE (09:00)
--- NOTE | 2018-09-26 15:43 | DELSUM ---
Delivery Summary A-C Datetime Report Generated by CPN: 09/26/2018 15:42 DELIVERY PERSONNEL Egg Pasteurizer: Alexander Myra MATERNAL INFORMATION Delivery Anesthesia: Epidural Medications in Delivery: 30 units of pitocin with LR Delivery QBL (ml): 300 Placenta Cultured: No Maternal Complications: None LABOR SUMMARY EDC: 09/24/2018 00:00 No. Babies in Womb: 1 Attempted: No Labor Anesthesia: Epidural LABOR INFORMATION Reason for Induction: Not Applicable Onset of Labor: 09/23/2018 02:00 Complete Dilatation: 09/23/2018 21:31 Group B Beta Strep: Negative Antibiotics # of Doses: 0 Steroids Given: None Reason Steroids Not Administered: Not Applicable MEMBRANES Membranes Rupture Method: Artificial Rupture of Membranes: 09/23/2018 20:39 Length of Rupture (hr): 1.03 Amniotic Fluid Color: Light Meconium Amniotic Fluid Amount: Small Amniotic Fluid Odor: None STAGES OF LABOR Stage 1 hr: 19 Stage 1 min: 31 Stage 2 hr: 0 Stage 2 min: 10 Stage 3 hr: 0 Stage 3 min: 4 Total Time in Labor hr: 19 Total Time in Labor min: 45 VAGINAL DELIVERY Episiotomy: None Laceration Extension: Second Degree Laceration Type: Perineal; Vaginal Laceration Repair: Yes Initial Vag Sponge Count: 10 Final Vag Sponge Count: 10 Initial Vag Sharps Count: 1+1 Final Vag Sharps Count: 2 Sponge Count Correct: Yes; Vaginal Sweep Performed Sharps Count Correct: Yes BABY A INFORMATION Infant Delivery Date/Time: 09/23/2018 21:41 Method of Delivery: Vaginal Born in Route : No : N/A Forceps: N/A Vacuum Extraction: N/A Shoulder Dystocia : N/A SHOULDER DYSTOCIA BABY A Delivery Date/Time: 09/23/2018 21:41 PRESENTATION/POSITION BABY A Presentation: Cephalic Cephalic Presentation: Vertex Vertex Position: Left Occipital Posterior Breech Presentation: N/A PLACENTA INFORMATION BABY A Placenta Delivery Time : 09/23/2018 21:45 Placenta Method of Delivery: Spontaneous Placenta Status: Delivered SCORES BABY A Heart Rate 1 min: >100 bpm Resp Effort 1 min: Slow, Irregular Reflex Irritability 1 min: Cough/Sneeze/Pulls Away Muscle Tone 1 min: Some Flexion of Extrem Color 1 min: Blue/Pale Resuscitation Effort 1 min: Tactile Stimulation; Oxygen; PPV/NCPAP SCORE 1 MIN: 6 Heart Rate 5 min: >100 bpm Resp Effort 5 min: Good Cry Reflex Irritability 5 min: Cough/Sneeze/Pulls Away Muscle Tone 5 min: Active Motion Color 5 min: Body [place], Extremit Blue SCORE 5 MIN: 9 INFANT INFORMATION BABY A Gestational Age at Delivery: 39.6 Gestational Status: Full Term- 39- 40.6 Weeks Outcome : Liveborn, with signs of life Infant Condition : Stable Infant Sex: Female IDENTIFICATION/MEDS BABY A ID Band Number: [id number] ID Band Location: Right Leg; Left Arm Sensor Applied: Yes Sensor Number: [id number] Sensor Location : Cord Clamp Vitamin K Given : Not Given Erythromycin Given: Not Given WEIGHT/LENGTH BABY A Birthweight (gm): 3200 Infant Weight (lb): 7 Weight (oz): 1 Infant Length (in): 19.75 Infant Length (cm): 50.17 CORD INFORMATION BABY A No. Cord Vessels: 3 Nuchal Cord : Around Neck x1, Tight Infant Cord pH Baby Arterial: 7.34 Cord pH Baby Venous: 7.32 Cord Blood Taken: Yes Infant Suction: Mouth; Nose ASSESSMENT BABY A Infant Complications: Multiple Late Decels; Multiple Variable Decels Physical Findings at Delivery: Within Normal Limits Respirations: Appears Normal Director Chemistry/ALS Called : No Care By: RON LEMON RN AND WIL HICKMAN RN Transferred To: Remains with Mother
== END 2018-09-25 14:35 | disposition home or self-care (01) | DRG 807 ==
LOC: L-D 06:00 → OBT 06:00 → L-D 06:45 → OBT 06:45 → L-D 07:30 → PP1 23:47
PROVIDERS: ADMIT Specialist; ATTEND Specialist
PROC: 10E0XZZ Delivery of Products of Conception, External Approach (ICD-10-PCS; principal; 2018-09-23)
PROC: 0KQM0ZZ Repair Perineum Muscle, Open Approach (ICD-10-PCS; 2018-09-23)
DX: O69.81X0 Labor and delivery complicated by cord around neck, without compression, not applicable or unspecified (principal); Z37.0 Single live birth; O70.1 Second degree perineal laceration during delivery; Z3A.39 39 weeks gestation of pregnancy
CPT/HCPCS: 36415; 36600; 62322; 82803; 85025; 85610; 85730; 86592; 86850; 86900; 86901; 87340; 90716; 99464; G0463; J2405; J2590; J3010; J7120